=== PATIENT | female | born 1990 | race American Indian/Alaskan Native ===

== ENCOUNTER 2016-10-11 19:15 | Emergency (ER) | payer OTHER ==
[2016-10-11 19:16] VITALS: BMI 28.5
[2016-10-11 19:34] VITALS: RESP 18
[2016-10-11] MEDS ORDERED: Iohexol 240 (50 ml) PO ONE (19:51)
--- NOTE | 2016-10-11 20:05 | C.PDOC ---
History Of Present Illness 26 year old female presents to the ED with complaints of RLQ abdominal pain for the past few days. Patient states she was seen in [facility] for the same complaints and was diagnosed with a right ovarian cyst. Denies nausea, vomiting , diarrhea, or any other complaints at this time. Chief Complaint (Nursing): Abdominal Pain History Per: Patient History/Exam Limitations: no limitations Onset/Duration Of Symptoms: Days Current Symptoms Are (Timing): Still Present Severity: Moderate Location Of Pain/Discomfort: RLQ Radiation Of Pain To:: None Quality Of Discomfort: "Pain" Associated Symptoms: denies: Nausea, Vomiting, Diarrhea Abnormal Vaginal Bleeding: No Past Medical History Reviewed: Historical Data, Nursing Documentation, Vital Signs Vital Signs: Last Vital Signs Temp 98.9 F 10/11/16 23:03 Pulse 68 10/12/16 01:56 Resp 18 10/12/16 01:56 BP 119/76 10/12/16 01:56 Pulse Ox 100 10/12/16 02:01 - Medical History PMH: Anxiety, Asthma, Migraine Family History: States: Unknown Family Hx - Social History Hx Alcohol Use: Yes Hx Substance Use: No - Immunization History Hx Influenza Vaccination: No Hx Pneumococcal Vaccination: No Review Of Systems Except As Marked, All Systems Reviewed And Found Negative. Constitutional: Negative for: Fever, Chills Gastrointestinal: Positive for: Abdominal Pain. Negative for: Nausea, Vomiting , Diarrhea Genitourinary: Negative for: Dysuria, Hematuria, Vaginal Bleeding Musculoskeletal: Negative for: Back Pain Physical Exam - Physical Exam Appears: Non-toxic, Other (+Moderate painful distress) Skin: Normal Color, Warm, Dry Head: Atraumatic, Normacephalic Eye(s): bilateral: Normal Inspection Oral Mucosa: Moist Neck: Supple Chest: Symmetrical, No Deformity Cardiovascular: Rhythm Regular Respiratory: Normal Breath Sounds, No Accessory Muscle Use, No Rales, No Rhonchi , No Wheezing Gastrointestinal/Abdominal: Soft, Tenderness (+Localized RLQ tenderness), No Distention, No Guarding, No Rebound Extremity: Normal ROM, No Deformity Neurological/Psych: Oriented x3, Normal Speech, Normal Cognition ED Course And Treatment - Laboratory Results Result Diagrams: 10/11/16 20:36 10/11/16 20:36 O2 Sat by Pulse Oximetry: 100 (Room air) Pulse Ox Interpretation: Normal - CT Scan/US CT ABD & Pelvis w/contrast Other Rad Studies (CT/US): Read By Radiologist, Radiology Report Reviewed CT/US Interpretation: IMPRESSION: 1. Moderate fecal retention. 2. Trace free fluid in the pelvis may be physiologic. 3. Subtle low attenuation changes in the periphery of both kidneys could reflect chronic or acute pyelonephritis. Progress Note: CT ABD & Pelvis w/contrast, Blood work, and Urinalysis ordered and reviewed. Patient treated with Morphine. Disposition Counseled Patient/Family Regarding: Diagnosis - Disposition Referrals: [facility] [Outside] Disposition: HOME/ ROUTINE Disposition Time: 02:08 Condition: STABLE Prescriptions: Sulfamethoxazole/Trimethoprim [Bactrim DS 800 mg-160 mg] 1 tab PO BID #14 tab traMADol/Acetaminophen [Ultracet 325 MG-37.5 MG] 1 tab PO Q4 #12 tab Instructions: Abdominal Pain (ED), Urinary Tract Infection in Women (GEN) - POA Present On Arrival: None - Clinical Impression Clinical Impression: Abdominal pain, Urinary tract infection - Scribe Statement The provider has reviewed the documentation as recorded by the Scribe Bobby Bernal. Provider Attestation: All medical record entries made by the Scribe were at my direction and personally dictated by me. I have reviewed the chart and agree that the record accurately reflects my personal performance of the history, physical exam, medical decision making, and the department course for this patient. I have also personally directed, reviewed, and agree with the discharge instructions and disposition.
[2016-10-11 20:43] LABS: BASO % 0.2 % (0.0-2.0); EOS % 0.4 % (0.0-4.0); HEMATOCRIT 35.4 % (34.0-47.0); LYMPH # 2.1 K/uL (1.0-4.3); LYMPH % 25.4 % (20.0-40.0); MEAN CELL VOLUME 75.1 fL (81.0-99.0); MEAN PLATELET VOLUME 10.5 fL (7.2-11.7); MONO # 0.8 K/uL (0.0-0.8); RED CELL DISTRIBUTION WIDTH 14.1 % (11.5-14.5); WHITE BLOOD COUNT 8.4 K/uL (4.8-10.8)
[2016-10-11 20:49] LABS: RBC URINE 89 /hpf (0-3); URINE BACTERIA RARE (<OCC); URINE BILIRUBIN NEGATIVE (NEGATIVE); URINE BLOOD 3+ (NEGATIVE); URINE COLOR Amber (YELLOW); URINE GLUCOSE (UA) NORMAL (Normal); URINE KETONE NEGATIVE (NEGATIVE); URINE LEUKOCYTE ESTERASE TRACE Leu/uL (Negative); URINE PROTEIN 1+ mg/dL (NEGATIVE); URINE UROBILINOGEN NORMAL mg/dL (0.2-1.0); WBC URINE 19 /hpf (0-5)
[2016-10-11 20:50] LABS: CHLORIDE 99 mmol/L (98-107); POTASSIUM 3.9 mmol/L (3.6-5.2); SODIUM 140 mmol/L (132-148)
[2016-10-11 20:52] LABS: ALB/GLOB RATIO 1.3 (1.0-2.1); ALKALINE PHOSPHATASE 52 U/L (38-126); AST/SGOT 18 U/L (14-36); BILIRUBIN,TOTAL 0.2 mg/dL (0.2-1.3); BLOOD UREA NITROGEN 8 mg/dL (7-17); CARBON DIOXIDE 25 mmol/L (22-30); GFR AFRICAN-AMERICAN > 60; TOTAL PROTEIN 7.8 g/dL (6.3-8.3)
[2016-10-11 20:53] LABS: ALT/SGPT 14 U/L (9-52); CALCIUM 8.8 mg/dl (8.6-10.4); GLUCOSE,RANDOM 88 mg/dL (65-105)
[2016-10-11] MEDS ORDERED: Iodixanol 320 mg/ml 150 ml Bottle IV ONE (22:18)
[2016-10-11 23:03] VITALS: TEMP 98.9
[2016-10-12 01:57] VITALS: BP 119/76; PULSE 68
[2016-10-12 02:01] VITALS: O2SAT 100
[2016-10-12] MEDS ORDERED: Tmp-Smz 800 mg-160 mg DS Tab PO STA (02:12)
--- NOTE | 2016-10-12 08:23 | US ---
HISTORY: Right sided abdominal pain COMPARISON: None available. TECHNIQUE: Transabdominal and transvaginal pelvic ultrasound was performed. FINDINGS: UTERUS: Measures 6.8 x 3.5 x 4.4 cm. The uterus is retroverted, normal in size and appearance. There is normal myometrial echotexture. No fibroid or other mass lesion seen. ENDOMETRIUM: Measures 4 mm in diameter. Unremarkable. CERVIX: No cervical abnormality identified. RIGHT OVARY: Measures 3.4 x 1.8 x 3.0 cm. No solid mass. Normal flow. LEFT OVARY: Measures 3.3 x 1.6 x 3.1 cm. No solid mass. Normal flow. FREE FLUID: No significant free fluid noted. OTHER FINDINGS: None. IMPRESSION: Normal pelvic ultrasound.
--- NOTE | 2016-10-12 09:36 | CT ---
PROCEDURE: CT Abdomen and Pelvis dated 10/10/2016. HISTORY: abd pain COMPARISON: None. TECHNIQUE: Contiguous axial images of the abdomen and p pelvis performed in standard fashion following oral and intravenous injection of approximately 100 cc of Visipaque 320 contrast material. Coronal and Sagittal reformats generated. Radiation dose: Total exam DLP = 523.17 mGy-cm. FINDINGS: LOWER THORAX: Lung bases are clear without evidence of infiltrate effusion or basilar pneumothorax. Tiny hiatal hernia. Heart size within range of normal. LIVER: Liver exhibits normal size measuring nearly 16.7 cm in CC dimension. Mild diffuse fatty hepatic infiltration. No obvious hepatic mass or collection. Portal and splenic veins are opacified. GALLBLADDER AND BILE DUCTS: Gallbladder is physiologically distended. No evidence of intraluminal gallbladder calculi. PANCREAS: The visualized portions of the pancreas unremarkable. No obvious pancreatic mass collection or calcification. No significant pancreatic ductal dilatation. SPLEEN: Spleen also exhibits normal size and attenuation pattern without mass collection or calcification. . ADRENALS: No adrenal lesions. . KIDNEYS AND URETERS: There is a small elliptical shaped focus low attenuation anterior aspect midpole left kidney measuring approximately 11 mm x 3.5mm that probably represents a small cyst. No other or vague area of low attenuation seen slightly more lateral and superior location which is too vague characterize though rule out infection or sequela of old infection/ inflammation. . Follow-up nonemergent renal ultrasound could be performed to confirm and exclude solid components. BLADDER: The urinary bladder is incompletely distended which may account for slight thick-walled appearance. Possibility of a cystitis not excluded. REPRODUCTIVE: Uterus and adnexal structures unremarkable. There appears to be trace amount of of free fluid within the cul de sac APPENDIX: Appendix is not seen with certainty on this study. No obvious inflammatory changes right lower quadrant of the abdomen. BOWEL: Evaluation of the bowel is limited due to incomplete opacification. Stomach is distended with contrast material some food debris liquid and air. Visualized loops of small bowel exhibit normal contour and caliber. No evidence of acute mechanical small bowel obstruction. Moderate amount of stool is seen throughout the colon consistent with fecal retention/constipation. PERITONEUM: . No free air. Small fat containing umbilical hernia. LYMPH NODES: Unremarkable. No enlarged lymph nodes. VASCULATURE: Unremarkable. No aortic aneurysm. BONES: No fracture or destructive lesion. OTHER FINDINGS: None. IMPRESSION: Trace amount of free fluid within the cul de sac. There is a vague area of low attenuation anterolateral aspect upper/ midpole left kidney too small characterize ; rule out sequela of infection or RO old infection/inflammation. Probable small cyst anterior aspect midpole left kidney. Clinical correlation recommended. The urinary bladder is thick-walled in appearance likely due to underdistention however cystitis should also be excluded. Mild fatty hepatic infiltration. Findings consistent with mild to moderate fecal retention/constipation
== END 2016-10-12 02:25 | disposition home or self-care (01) ==
LOC: C.ER 19:15
DX: N39.0 Urinary tract infection, site not specified (principal)

== ENCOUNTER 2017-08-23 13:31 | Emergency (ER) | payer OTHER ==
[2017-08-23 13:32] VITALS: BMI 28.0
== END 2017-08-23 14:57 | disposition left against medical advice (07) ==
LOC: C.ER 13:31
DX: Z02.89 Encounter for other administrative examinations (principal); R51 Headache